=== PATIENT | female | born 1990 ===

== ENCOUNTER 2017-10-10 15:39 | Emergency (ER) | payer MEDICAID ==
[2017-10-10 16:35] VITALS: BP 110/70; PULSE 92; RESP 19; TEMP 98.4; O2SAT 97
--- NOTE | 2017-10-10 18:11 | RAD ---
Date of service: 10/10/2017 PROCEDURE: Left Ankle Radiographs. HISTORY: pain, twsited a week ago. COMPARISON: None FINDINGS: BONES: No acute fracture. JOINTS: Ankle mortise maintained. Talar dome intact SOFT TISSUES: Mild bimalleolar soft tissue swelling. Small ankle joint effusion. OTHER FINDINGS: None. IMPRESSION: Soft tissue swelling and small ankle joint effusion without demonstrated fracture dislocation.
--- NOTE | 2017-10-10 18:35 | ED PDOC ---
Lower Extremity Pain/Injury Time Seen by Provider: 10/10/17 17:06 Chief Complaint (Nursing): Lower Extremity Problem/Injury Chief Complaint (Provider): Left ankle pain, twisted 1 week ago History Per: Patient History/Exam Limitations: no limitations Onset/Duration Of Symptoms: Days Current Symptoms Are (Timing): Still Present Severity: Mild Additional Complaint(s): 27 yo female with no medical problems presents with left ankle pain for 1 week. PT statesshe missed a step going down the stairs and twisted her ankle. Pt states it hurts when walking. Past Medical History Reviewed: Historical Data, Nursing Documentation, Vital Signs Vital Signs: Last Vital Signs Temp 98.4 F 10/10/17 16:31 Pulse 92 H 10/10/17 16:31 Resp 19 10/10/17 16:31 BP 110/70 10/10/17 16:31 Pulse Ox 97 10/10/17 16:31 - Medical History PMH: No Chronic Diseases - Surgical History Surgical History: No Surg Hx - Family History Family History: States: No Known Family Hx - Living Arrangements Living Arrangements: With Family - Social History Current smoker - smoking cessation education provided: No - Home Medications Home Medications: Ambulatory Orders Medication Instructions Recorded Ibuprofen [Motrin Tab] 800 mg PO Q6H PRN #20 tab 10/10/17 - Allergies Allergies/Adverse Reactions: Allergies Allergy/AdvReac Type Severity Reaction Status Date / Time No Known Allergies Allergy Verified 10/10/17 16:30 Review of Systems ROS Statement: Except As Marked, All Systems Reviewed And Found Negative Constitutional: Negative for: Fever, Chills Musculoskeletal: Positive for: Other Skin: Negative for: Bruising Physical Exam - Reviewed Nursing Documentation Reviewed: Yes Vital Signs Reviewed: Yes - Physical Exam Appears: Positive for: Well, Non-toxic, No Acute Distress Head Exam: Positive for: ATRAUMATIC, NORMAL INSPECTION, NORMOCEPHALIC Skin: Positive for: Normal Color (No erythema, no ecchymosis ), Warm Eye Exam: Positive for: Normal appearance ENT: Positive for: Normal ENT Inspection Neck: Positive for: Normal Cardiovascular/Chest: Negative for: Bradycardia, Tachycardia Respiratory: Negative for: Accessory Muscle Use, Respiratory Distress Pulses-Post. Tibialis (L): 2+ Pulses-Post. Tibialis (R): 2+ Back: Positive for: Normal Inspection Extremity: Positive for: Normal ROM. Negative for: Tenderness, Deformity, Swelling Neurologic/Psych: Positive for: Alert, Oriented - ECG O2 Sat by Pulse Oximetry: 97 Medical Decision Making Medical Decision Making: XR without acute fracture or dislocation Disposition - Clinical Impression Clinical Impression: Ankle injury - Patient ED Disposition Is Patient to be Admitted: No Counseled Patient/Family Regarding: Diagnosis, Need For Followup - Disposition Referrals: Carlito Vogt III, MD [Staff Provider] - Disposition: Routine/Home Disposition Time: 18:17 Condition: STABLE Prescriptions: Ibuprofen [Motrin Tab] 800 mg PO Q6H PRN #20 tab PRN Reason: Pain Instructions: Ankle Sprain Print Language: FAROESE
== END 2017-10-10 19:12 | disposition home or self-care (01) ==
LOC: SUPCPDRO 15:39 → H.ER 15:39
DX: S99.912A Unspecified injury of left ankle, initial encounter (principal); X50.1XXA Overexertion from prolonged static or awkward postures, initial encounter; Y92.9 Unspecified place or not applicable

== ENCOUNTER 2018-02-21 16:33 | Emergency (ER) | payer MEDICAID ==
--- NOTE | 2018-02-21 17:47 | ED PDOC ---
HPI: Female Pain Additional Complaint(s): 27 yo female w/o PMH presents to the ED c/o lower abdominal pain and dysuria since last week, associated frequency. Patient has been taking tylenol and pyridium as per her mother, no relief in sx. She denies fever, chills, nausea, vomiting, chest pain or upper abdominal pain. No changes in BM. PMD: none provided <Sherie Farah - Last Filed: 02/21/18 18:49> <Tia Snow - Last Filed: 02/23/18 11:29> Time Seen by Provider: 02/21/18 17:33 Chief Complaint (Nursing): Female Genitourinary Supervising Attending Note - Supervising Attending Note The Documented history was done by the: Physician Cuff Setter Overlock The documented physical exam was done by the: Physician Cuff Setter Overlock The documented procedures were done by the: Physician Cuff Setter Overlock - Attestation: I have personally seen and examined this patient.: Yes I have fully participated in the care of the patient.: Yes I have reviewed all pertinent clinical information, including history, physical exam and plan: Yes <Tia Snow - Last Filed: 02/23/18 11:29> Past Medical History Vital Signs: Last Vital Signs Temp 99.0 F 02/21/18 16:48 Pulse 109 H 02/21/18 16:48 Resp 20 02/21/18 16:48 BP 129/79 02/21/18 16:48 Pulse Ox 99 02/21/18 16:48 - Medical History PMH: No Chronic Diseases - Surgical History Other surgeries: Lipoma in her back - Family History Family History: States: No Known Family Hx - Social History Current smoker - smoking cessation education provided: No Ex-Smoker (has not smoked in the last 12 months): No Alcohol: Occasional Drugs: Denies - Immunization History Hx Tetanus Toxoid Vaccination: No Hx Influenza Vaccination: No Hx Pneumococcal Vaccination: No <Sherie Farah - Last Filed: 02/21/18 18:49> Vital Signs: Last Vital Signs Temp 98.3 F 02/21/18 18:49 Pulse 93 H 02/21/18 18:49 Resp 18 02/21/18 18:49 BP 115/74 02/21/18 18:49 Pulse Ox 99 02/21/18 18:49 <Tia Snow Y - Last Filed: 02/23/18 11:29> - Home Medications Home Medications: Ambulatory Orders Medication Instructions Recorded Ibuprofen [Motrin Tab] 800 mg PO Q6H PRN #20 tab 10/10/17 Ciprofloxacin HCl [Cipro] 500 mg PO BID #20 tab 02/21/18 - Allergies Allergies/Adverse Reactions: Allergies Allergy/AdvReac Type Severity Reaction Status Date / Time No Known Allergies Allergy Verified 02/21/18 16:47 Physical Exam - Physical Exam Appears: Positive for: No Acute Distress Head Exam: Positive for: NORMAL INSPECTION Skin: Positive for: Warm, Dry Cardiovascular/Chest: Positive for: Regular Rate, Rhythm. Negative for: Tachycardia Respiratory: Positive for: Normal Breath Sounds. Negative for: Rales, Wheezing Gastrointestinal/Abdominal: Positive for: Bowel Sounds, Soft, Tenderness (pelvic area). Negative for: Distended Back: Negative for: L CVA Tenderness, R CVA Tenderness Neurologic/Psych: Positive for: Alert, crm solution architect II-XII, Oriented <Sherie Farah - Last Filed: 02/21/18 18:49> - Laboratory Results Result Diagrams: 02/21/18 18:25 - ECG O2 Sat by Pulse Oximetry: 99 - Progress ED Course And Treament: 27 yo female patient present with Lower abdominal pain and dysuria, r/o UTI Plan: - CBC - CMP - UA, - urine culture Transfer of care to Dr Snow Pending labs and urine results <Sherie Farah - Last Filed: 02/21/18 18:49> - Laboratory Results Result Diagrams: 02/21/18 18:25 02/21/18 18:25 <Tia Snow - Last Filed: 02/23/18 11:29> Medical Decision Making Medical Decision Making: Time: 2002 --UA reviewed: indicative for UTI. Upon re-evaluation, patient is feeling better, medically stable, and requires no further treatment in the ED at this time. Patient will be discharged home with Rx for Cipro. Counseling was provided and all questions were answered regarding diagnosis. There is agreement to discharge plan. Return if symptoms persist or worsen. Clinical Impression: UTI Scribe Attestation: Documented by Aspen Chopra, acting as a scribe for Tia Snow MD. Provider Scribe Attestation: All medical record entries made by the Scribe were at my direction and personally dictated by me. I have reviewed the chart and agree that the record accurately reflects my personal performance of the history, physical exam, medical decision making, and the department course for this patient. I have also personally directed, reviewed, and agree with the discharge instructions and disposition. <Tia Snow Y - Last Filed: 02/23/18 11:29> Disposition - Disposition Disposition: Transfer of Care Disposition Time: 18:47 <Sherie Farah - Last Filed: 02/21/18 18:49> - Patient ED Disposition Is Patient to be Admitted: No Counseled Patient/Family Regarding: Studies Performed, Diagnosis, Rx Given - Disposition Disposition: Routine/Home <Tia Snow Y - Last Filed: 02/23/18 11:29> - Clinical Impression Clinical Impression: Urinary tract infection - Disposition Condition: IMPROVED Additional Instructions: follow up with your doctor in 1-2 days return to the ED with any worsening or concerning symptoms Prescriptions: Ciprofloxacin HCl [Cipro] 500 mg PO BID #20 tab Instructions: Urinary Tract Infection, Adult (DC) Forms: [employer] ([place])
[2018-02-21 18:29] LABS: HEMOGLOBIN 13.4 g/dL (12.0-16.0); MEAN CELL VOLUME 89.5 fl (81.0-99.0); MEAN CORPUSCULAR HEMOGLOBIN 30.3 pg (27.0-31.0); MEAN CORPUSCULAR HGB CONC 33.9 g/dL (33.0-37.0); RBC 4.43 Mil/uL (3.80-5.20); RED CELL DISTRIBUTION WIDTH 12.2 % (11.5-14.5); WHITE BLOOD COUNT 10.6 K/uL (4.8-10.8)
[2018-02-21 18:52] VITALS: PULSE 93; RESP 18; TEMP 98.3
[2018-02-21 18:52] LABS: ALBUMIN 4.1 g/dL (3.5-5.0); ALT/SGPT 29 U/L (9-52); AST/SGOT 26 U/L (14-36); BLOOD UREA NITROGEN 14 mg/dl (7-17); GFR NON-AFRICAN AMERICAN > 60
[2018-02-21 18:52] LABS: URINE CLARITY CLOUDY (Clear); URINE COLOR YELLOW (YELLOW)
[2018-02-21 18:53] LABS: URINE BILIRUBIN NEGATIVE (NEGATIVE); URINE GLUCOSE (UA) NEGATIVE (Normal)
[2018-02-21 18:54] LABS: URINE BLOOD TRACE (NEGATIVE); URINE PROTEIN 30 mg/dL (NEGATIVE)
[2018-02-21 18:55] LABS: SQUAMOUS EPITHIAL 4 /hpf (0-5); URINE BACTERIA OCC (<OCC); URINE LEUKOCYTE ESTERASE LARGE Leu/uL (Negative)
[2018-02-21 20:40] VITALS: BP 114/75; O2SAT 97
== END 2018-02-21 20:40 | disposition home or self-care (01) ==
LOC: H.ER 16:33
DX: N39.0 Urinary tract infection, site not specified (principal); Z87.891 Personal history of nicotine dependence